=== PATIENT | male | born 1940 | race Caucasian/White ===

== ENCOUNTER 2017-11-22 09:29 | Inpatient (IN) ==
[2017-11-22 10:29] LABS: Basophils % 0.1 % (0.0-0.8); Eosinophils % 0.4 % (0.00-10.9); Hematocrit 31.7 VOL% (42.0-52.0); Hemoglobin 10.6 GM/DL (14.0-18.0); Immature Granulocytes % 0.3 %; Immature Granulocytes Absolute 0.02 #; Lymphocytes # 0.8 10*3/uL (1.4-4.0); Lymphocytes % 11.2 % (21.2-54.2); Mean Corpuscular HGB Conc 33.4 GM/DL (32-36); Mean Corpuscular Hemoglobin 33 PG (27-34); Monocytes # 0.9 10*3/uL (0.11-0.8); Monocytes % 12.2 % (1.7-12.7); Neutrophils # 5.5 10*3/uL (1.4-7.4); Neutrophils % 75.8 % (38.7-73.9); Platelet Count 116 T/CUMM (130-400); Red Blood Count 3.17 MC/CUMM (3.8-5.5); Red Cell Distribution Width 13.2 % (9.3-17.3); White Blood Count 7.2 T/CUMM (4-12)
[2017-11-22 10:45] LABS: Albumin 1.8 G/DL (3.4-5.0); Bilirubin,Total 1.4 MG/DL (0.2-1.0); Calcium 7.6 MG/DL (8.5-10.1); Osmolality,Calculated 276.7 MOS/KG (273-304); Potassium 3.9 MMOL/L (3.5-5.1); Total Protein 5.3 G/DL (6.4-8.3)
[2017-11-22] MEDS ORDERED: SODIUM CHLORIDE 0.9% 1,000 ML IV STA (11:05)
[2017-11-22] MEDS ORDERED: MAGNESIUM SULF RIDER 1 GM in PREMIX 1 EACH IV STA (11:36)
[2017-11-22] MEDS ORDERED: MAGNESIUM SULF RIDER 50 ML IV ONE (11:44)
[2017-11-22 12:08] LABS: Apearance,Urine CLEAR (Clear); Bacteria,Urine Occasional /HPF (Few); Bilirubin,Urine Negative (Negative); Blood, Urine Negative (Negative); Glucose,Urine (UA) Negative (Negative); Hyaline Casts,Urine 3 /LPF (0-3); Ketones,Urine Negative (Negative); Mucus,Urine Occasional /LPF (Occasional); Nitrite,Urine Negative (Negative); Protein,Urine Negative; RBC,Urine <1 /HPF (0-4); Squamous Epithelial Cell,Urine Occasional /HPF (0-10); Urine Color Yellow (Yellow); Urine Urobilinogen < 2.0 EU/DL (0.2-1.0); WBC,Urine <1 /HPF (0-6)
[2017-11-22] MEDS ORDERED: ONDANSETRON 4 MG/2 ML VIAL IV PRN (12:24)
[2017-11-22] MEDS ORDERED: DOCUSATE SODIUM 100 MG CAPSULE PO PRN (12:24)
[2017-11-22] MEDS ORDERED: MORPHINE 4 MG/1 ML VIAL IV PRN (12:24)
[2017-11-22] MEDS ORDERED: ACETAMINOPHEN 325 MG TABLET PO PRN (12:24)
[2017-11-22] MEDS ORDERED: GLUCAGON 1 MG VIAL IM PRN (12:30)
[2017-11-22] MEDS ORDERED: DEXTROSE 50% 25 GM/50 ML VIAL IV PRN (12:30)
[2017-11-22] MEDS ORDERED: MAGNESIUM SULF RIDER 2 GM in PREMIX 1 EACH IV PRN (13:28)
[2017-11-22] MEDS ORDERED: MAGNESIUM SULF RIDER 4 GM in PREMIX 1 EACH IV PRN (13:28)
[2017-11-22] MEDS: PANTOPRAZOLE 40 MG VIAL IV SCH ×2 (13:30→21:05)
[2017-11-22] MEDS: MAGNESIUM OXIDE 400 MG TABLET PO SCH ×2 (13:30→21:05)
[2017-11-22 13:46] LABS: Folate > 24.0 NG/ML (5.4-24.0); Hepatitis A Ab IgM Quant 0.21 Index; Hepatitis A Ab IgM Result Negative (Negative); Hepatitis B Core IgM Result Negative (Negative); Hepatitis B Surface Ag Quant < 0.10 Index; Hepatitis B Surface Ag Result Negative (Negative); Hepatitis C Virus Ab Quant 0.13 Index; Hepatitis C Virus Ab Result Negative (Negative); Vitamin B12 > 2000 PG/ML (211-911)
[2017-11-22] MEDS: DOXYCYCLINE HYCLATE 100 MG CAPSULE PO SCH ×2 (15:53→21:05)
[2017-11-22] MEDS: SODIUM CHLORIDE 0.9% 1,000 ML IV SCH ×3 (17:05→21:05)
[2017-11-22] MEDS: LIPASE/PROTEASE/AMYLASE 4,200 UNITS CAPSULE PO SCH (17:58)
[2017-11-22] MEDS: INSULIN LISPRO 100 UNIT/ML SUBCUT SCH (17:59)
[2017-11-22 22:38] LABS: Basophils % 0.2 % (0.0-0.8); Eosinophils # 0.1 10*3/uL (0.0-0.87); Eosinophils % 0.9 % (0.00-10.9); Hematocrit 27.3 VOL% (42.0-52.0); Hemoglobin 9.1 GM/DL (14.0-18.0); Immature Granulocytes % 0.7 %; Immature Granulocytes Absolute 0.04 #; Lymphocytes # 0.5 10*3/uL (1.4-4.0); Lymphocytes % 9.2 % (21.2-54.2); Mean Corpuscular HGB Conc 33.3 GM/DL (32-36); Mean Corpuscular Hemoglobin 34 PG (27-34); Mean Corpuscular Volume 100.4 FL (87-102); Mean Platelet Volume 13.4 FL (9.6-12.0); Monocytes # 0.7 10*3/uL (0.11-0.8); Monocytes % 11.5 % (1.7-12.7); Neutrophils # 4.5 10*3/uL (1.4-7.4); Neutrophils % 77.5 % (38.7-73.9); Platelet Count 114 T/CUMM (130-400); Red Blood Count 2.72 MC/CUMM (3.8-5.5); Red Cell Distribution Width 13.2 % (9.3-17.3); White Blood Count 5.7 T/CUMM (4-12)
[2017-11-22 22:54] LABS: Sedimentation Rate-Westergren 25 MM/HR (0-20)
[2017-11-23 05:22] LABS: Basophils % 0.2 % (0.0-0.8); Eosinophils # 0.1 10*3/uL (0.0-0.87); Hematocrit 26.6 VOL% (42.0-52.0); Immature Granulocytes % 0.7 %; Immature Granulocytes Absolute 0.04 #; Lymphocytes # 0.6 10*3/uL (1.4-4.0); Lymphocytes % 10.1 % (21.2-54.2); Mean Corpuscular HGB Conc 33.8 GM/DL (32-36); Mean Corpuscular Hemoglobin 33 PG (27-34); Mean Corpuscular Volume 97.8 FL (87-102); Monocytes # 0.8 10*3/uL (0.11-0.8); Monocytes % 12.9 % (1.7-12.7); Neutrophils # 4.5 10*3/uL (1.4-7.4); Neutrophils % 75.1 % (38.7-73.9); Platelet Count 113 T/CUMM (130-400); Red Blood Count 2.72 MC/CUMM (3.8-5.5); Red Cell Distribution Width 13.1 % (9.3-17.3)
[2017-11-23 06:05] LABS: Albumin 1.5 G/DL (3.4-5.0); Bilirubin,Total 1.2 MG/DL (0.2-1.0); Calcium 6.9 MG/DL (8.5-10.1); Osmolality,Calculated 287.1 MOS/KG (273-304); Potassium 3.9 MMOL/L (3.5-5.1); Risk Ratio 5.5; Thyroid Stimulating Hormone 2.61 uIU/ml (0.358-3.74); Total Protein 4.3 G/DL (6.4-8.3); VLDL CHOLESTEROL 14.4 MG/DL
[2017-11-23] MEDS: SODIUM CHLORIDE 0.9% 1,000 ML IV SCH ×4 (07:31→16:47)
[2017-11-23] MEDS: LIPASE/PROTEASE/AMYLASE 4,200 UNITS CAPSULE PO SCH ×3 (08:00→16:47)
[2017-11-23] MEDS: PANTOPRAZOLE 40 MG VIAL IV SCH ×2 (08:38→20:37)
[2017-11-23] MEDS: INSULIN LISPRO 100 UNIT/ML SUBCUT SCH ×2 (08:40→16:46)
[2017-11-23] MEDS ORDERED: ETOMIDATE 20 MG/10 ML VIAL IV ONE (09:00)
[2017-11-23] MEDS ORDERED: LIDOCAINE 2% 5 ML VIAL ONE (09:00)
[2017-11-23] MEDS ORDERED: PROPOFOL 200 MG/20 ML VIAL IV ONE (09:00)
[2017-11-23 09:10] LABS: Hemoglobin A1 (Alkaline) 97.4 % (96.5-98.5); Hemoglobin A2 (Alkaline) 2.6 % (1.5-3.5)
[2017-11-23] MEDS: MAGNESIUM OXIDE 400 MG TABLET PO SCH ×2 (12:13→20:37)
[2017-11-23] MEDS: DOXYCYCLINE HYCLATE 100 MG CAPSULE PO SCH ×2 (12:13→20:37)
[2017-11-23] MEDS: IRON SUCROSE 200 MG in SODIUM CHLORIDE 0.9% 100 ML IV SCH (16:46)
[2017-11-23] MEDS ORDERED: TAMSULOSIN 0.4 MG CAPSULE PO SCH (21:00)
[2017-11-23 21:55] LABS: Apearance,Urine CLEAR (Clear); Bacteria,Urine Occasional /HPF (Few); Bilirubin,Urine Negative (Negative); Blood, Urine Negative (Negative); Glucose,Urine (UA) Negative (Negative); Hyaline Casts,Urine 4 /LPF (0-3); Ketones,Urine Negative (Negative); Mucus,Urine Occasional /LPF (Occasional); Nitrite,Urine Negative (Negative); Protein,Urine Negative; Urine Color Yellow (Yellow); Urine Specific Gravity 1.011 (1.001-1.035); Urine Urobilinogen < 2.0 EU/DL (0.2-1.0); WBC,Urine 1 /HPF (0-6)
[2017-11-24] MEDS: SODIUM CHLORIDE 0.9% 1,000 ML IV SCH ×2 (00:25→08:10)
[2017-11-24 05:13] LABS: Basophils % 0.3 % (0.0-0.8); Eosinophils # 0.2 10*3/uL (0.0-0.87); Eosinophils % 2.9 % (0.00-10.9); Hematocrit 25.7 VOL% (42.0-52.0); Hemoglobin 8.9 GM/DL (14.0-18.0); Immature Granulocytes % 0.5 %; Immature Granulocytes Absolute 0.03 #; Lymphocytes # 0.8 10*3/uL (1.4-4.0); Lymphocytes % 13.3 % (21.2-54.2); Mean Corpuscular HGB Conc 34.6 GM/DL (32-36); Mean Corpuscular Hemoglobin 33 PG (27-34); Mean Corpuscular Volume 95.5 FL (87-102); Mean Platelet Volume 12.5 FL (9.6-12.0); Monocytes # 0.8 10*3/uL (0.11-0.8); Monocytes % 12.8 % (1.7-12.7); Neutrophils # 4.3 10*3/uL (1.4-7.4); Neutrophils % 70.2 % (38.7-73.9); Platelet Count 150 T/CUMM (130-400); Red Blood Count 2.69 MC/CUMM (3.8-5.5); Red Cell Distribution Width 13.4 % (9.3-17.3); White Blood Count 6.2 T/CUMM (4-12)
[2017-11-24 05:23] LABS: Calcium 6.7 MG/DL (8.5-10.1)
[2017-11-24] MEDS: IRON SUCROSE 200 MG in SODIUM CHLORIDE 0.9% 100 ML IV SCH (08:00)
[2017-11-24] MEDS ORDERED: LISINOPRIL 5 MG TABLET PO SCH (09:00)
[2017-11-24] MEDS ORDERED: FUROSEMIDE 40 MG TABLET PO SCH (09:00)
[2017-11-24] MEDS: INSULIN LISPRO 100 UNIT/ML SUBCUT SCH (09:08)
[2017-11-24] MEDS: LIPASE/PROTEASE/AMYLASE 4,200 UNITS CAPSULE PO SCH ×2 (09:08→12:30)
[2017-11-24] MEDS: DOXYCYCLINE HYCLATE 100 MG CAPSULE PO SCH (09:09)
[2017-11-24] MEDS: MAGNESIUM OXIDE 400 MG TABLET PO SCH (09:09)
[2017-11-24] MEDS: PANTOPRAZOLE 40 MG VIAL IV SCH (09:13)
[2017-11-24 11:26] VITALS: BP 107/55
[2017-11-26 13:10] LABS: Collection duration of stool Random h; Total Weight of Stool 36 g
== END 2017-11-24 15:20 | disposition home or self-care (01) | DRG 948 ==
LOC: N.ED 09:29 → N.EDINP 11:56 → N.2W 13:56 → N.TELES 16:13
PROVIDERS: ADMIT Internal Medicine; ATTEND Internal Medicine

== ENCOUNTER 2021-07-26 19:13 | Inpatient (IN) ==
[2021-07-26] MEDS ORDERED: ONDANSETRON 4 MG/2 ML VIAL IV STA (20:07)
[2021-07-26 20:13] LABS: Basophils % 0.5 % (0.0-0.8); Eosinophils # 0.4 10*3/uL (0.0-0.87); Eosinophils % 4.8 % (0.00-10.9); Hematocrit 40.6 VOL% (42.0-52.0); Hemoglobin 12.6 GM/DL (14.0-18.0); Immature Granulocytes % 0.5 %; Immature Granulocytes Absolute 0.04 #; Lymphocytes # 1.9 10*3/uL (1.4-4.0); Mean Corpuscular Volume 92.3 FL (87-102); Mean Platelet Volume 11.7 FL (9.6-12.0); Monocytes % 7.8 % (1.7-12.7); Neutrophils % 64.4 % (38.7-73.9); Platelet Count 280 T/CUMM (130-400); Red Cell Distribution Width 15.8 % (9.3-17.3); White Blood Count 8.4 T/CUMM (4-12)
[2021-07-26] MEDS ORDERED: ALBUTEROL/IPRATROPIUM 3 ML NEB RESP TX STA (20:20)
[2021-07-26] MEDS ORDERED: FUROSEMIDE 40 MG/4 ML VIAL IV STA (20:20)
[2021-07-26] MEDS ORDERED: methylPREDNISolone SOD SUC 125 MG/2 ML VIAL IV STA (20:20)
[2021-07-26 20:29] LABS: INR 1.1; PT Patient Result 12.5 SECS (10.5-12.0)
[2021-07-26 20:34] LABS: Albumin 3.6 G/DL (3.4-5.0); Bilirubin,Total 0.4 MG/DL (0.20-1.00); Calcium 9.3 MG/DL (8.5-10.1); Osmolality,Calculated 291.5 MOS/KG (273-304); Potassium 5.2 MMOL/L (3.5-5.1); Total Protein 7.8 G/DL (6.4-8.2)
[2021-07-26] MEDS ORDERED: MAGNESIUM SULF RIDER 2 GM/50 ML PREMIX IV STA (21:09)
[2021-07-26] MEDS ORDERED: ZALEPLON 5 MG CAPSULE PO PRN (21:46)
[2021-07-26] MEDS ORDERED: ACETAMINOPHEN 325 MG TABLET PO PRN (21:46)
[2021-07-26] MEDS ORDERED: ONDANSETRON 4 MG/2 ML VIAL IV PRN (21:46)
[2021-07-26] MEDS ORDERED: DOCUSATE SODIUM 100 MG CAPSULE PO PRN (21:46)
[2021-07-26] MEDS ORDERED: guaiFENesin/DM ER 600-30 MG TABLET PO PRN (21:46)
[2021-07-26] MEDS ORDERED: NICOTINE 21 MG/24 HR PATCH TRANSDERM PRN (21:46)
[2021-07-26] MEDS ORDERED: DEXTROSE 50% 25 GM/50 ML VIAL IV PRN (21:46)
[2021-07-26] MEDS ORDERED: hydrALAZINE 20 MG/1 ML VIAL IV PRN (21:46)
[2021-07-26] MEDS ORDERED: GLUCAGON 1 MG VIAL IM PRN ×2 (21:46)
[2021-07-26] MEDS ORDERED: diphenhydrAMINE CAP 25 MG CAPSULE PO PRN (21:46)
[2021-07-26] MEDS ORDERED: FUROSEMIDE 40 MG/4 ML VIAL IV SCH (22:00)
[2021-07-26] MEDS ORDERED: DEXTROSE 10% 250 ML BAG IV PRN (22:17)
[2021-07-27] MEDS: ALBUTEROL/IPRATROPIUM 3 ML NEB RESP TX SCH ×4 (01:03→18:04)
[2021-07-27 04:26] LABS: Basophils % 0.1 % (0.0-0.8); Hematocrit 35.8 VOL% (42.0-52.0); Hemoglobin 11.1 GM/DL (14.0-18.0); Immature Granulocytes % 0.7 %; Immature Granulocytes Absolute 0.05 #; Lymphocytes # 0.3 10*3/uL (1.4-4.0); Lymphocytes % 3.5 % (21.2-54.2); Mean Corpuscular Volume 91.1 FL (87-102); Mean Platelet Volume 11.5 FL (9.6-12.0); Monocytes % 0.4 % (1.7-12.7); Neutrophils % 95.3 % (38.7-73.9); Platelet Count 257 T/CUMM (130-400); Red Blood Count 3.93 MC/CUMM (3.8-5.5); Red Cell Distribution Width 15.6 % (9.3-17.3); White Blood Count 7.4 T/CUMM (4-12)
[2021-07-27 04:55] LABS: Band Neutrophils 1 % (0-10); Calcium 8.7 MG/DL (8.5-10.1); Lymphocytes 4 % (20-55); Osmolality,Calculated 299.7 MOS/KG (273-304); Potassium 4.5 MMOL/L (3.5-5.1); Segmented Neutrophils 94 % (50-85); Total Cells Counted 100
[2021-07-27 04:56] LABS: Hypochromia 1+; Microcytosis 1+; Ovalocytes Slight; Platelet Estimate Normal
[2021-07-27] MEDS ORDERED: FUROSEMIDE 40 MG/4 ML VIAL IV SCH (08:00)
[2021-07-27] MEDS: INSULIN LISPRO 100 UNIT/ML SUBCUT SCH ×4 (08:06→22:15)
[2021-07-27] MEDS ORDERED: MAGNESIUM SULF RIDER 2 GM/50 ML PREMIX IV ONE (08:49)
[2021-07-27] MEDS ORDERED: MAGNESIUM SULF RIDER 4 GM/100 ML PREMIX IV PRN (08:50)
[2021-07-27] MEDS ORDERED: MAGNESIUM SULF RIDER 2 GM/50 ML PREMIX IV PRN (08:50)
[2021-07-27] MEDS ORDERED: lisinopriL 5 MG TABLET PO SCH (09:00)
[2021-07-27] MEDS: MULTIVITAMIN (CENTRUM) TABLET PO SCH (09:35)
[2021-07-27] MEDS: carvediloL 3.125 MG TABLET PO SCH ×2 (09:36→21:05)
[2021-07-27] MEDS: PANTOPRAZOLE 40 MG TABLET PO SCH (09:36)
[2021-07-27] MEDS: MAGNESIUM OXIDE 400 MG TABLET PO SCH ×2 (09:36→21:05)
[2021-07-27] MEDS: APIXABAN 5 MG TABLET PO SCH ×2 (09:36→21:05)
[2021-07-27] MEDS: LIPASE/PROTEASE/AMYLASE 4,200 UNITS CAPSULE PO SCH ×3 (10:05→17:30)
[2021-07-27 11:20] LABS: Calcium 8.6 MG/DL (8.5-10.1); Potassium 4.4 MMOL/L (3.5-5.1)
[2021-07-28] MEDS: ALBUTEROL/IPRATROPIUM 3 ML NEB RESP TX SCH ×4 (00:05→19:36)
[2021-07-28 05:54] LABS: Basophils % 0.3 % (0.0-0.8); Eosinophils # 0.1 10*3/uL (0.0-0.87); Eosinophils % 0.8 % (0.00-10.9); Hematocrit 33.5 VOL% (42.0-52.0); Hemoglobin 10.7 GM/DL (14.0-18.0); Immature Granulocytes % 0.5 %; Immature Granulocytes Absolute 0.07 #; Lymphocytes # 1.9 10*3/uL (1.4-4.0); Lymphocytes % 14.1 % (21.2-54.2); Mean Corpuscular HGB Conc 31.9 GM/DL (32-36); Mean Corpuscular Volume 90.3 FL (87-102); Mean Platelet Volume 12.1 FL (9.6-12.0); Monocytes % 6.7 % (1.7-12.7); Neutrophils % 77.6 % (38.7-73.9); Platelet Count 209 T/CUMM (130-400); Red Blood Count 3.71 MC/CUMM (3.8-5.5); Red Cell Distribution Width 15.5 % (9.3-17.3); White Blood Count 13.7 T/CUMM (4-12)
[2021-07-28 06:04] LABS: Calcium 8.5 MG/DL (8.5-10.1); Osmolality,Calculated 289.4 MOS/KG (273-304)
[2021-07-28] MEDS: INSULIN LISPRO 100 UNIT/ML SUBCUT SCH ×4 (08:20→22:59)
[2021-07-28] MEDS ORDERED: FUROSEMIDE 40 MG/4 ML VIAL IV SCH ×2 (09:00)
[2021-07-28] MEDS: LIPASE/PROTEASE/AMYLASE 4,200 UNITS CAPSULE PO SCH ×3 (09:30→18:15)
[2021-07-28] MEDS: CYANOCOBALAMIN 500 MCG TABLET PO SCH (09:31)
[2021-07-28] MEDS: PANTOPRAZOLE 40 MG TABLET PO SCH (09:31)
[2021-07-28] MEDS: carvediloL 3.125 MG TABLET PO SCH ×2 (09:31→21:30)
[2021-07-28] MEDS: MULTIVITAMIN (CENTRUM) TABLET PO SCH (09:31)
[2021-07-28] MEDS: MAGNESIUM OXIDE 400 MG TABLET PO SCH ×2 (09:31→21:30)
[2021-07-28] MEDS: APIXABAN 5 MG TABLET PO SCH ×2 (09:31→21:30)
[2021-07-28] MEDS: FUROSEMIDE 40 MG TABLET PO SCH (10:58)
[2021-07-28 17:44] LABS: RBC,Urine 1 /HPF (0-4)
[2021-07-28 17:49] LABS: Urine Appearance Clear (Clear); Urine Color Yellow (Yellow); Urine Specific Gravity 1.015 (1.001-1.035)
[2021-07-28 17:50] LABS: Bilirubin,Urine Negative (Negative); Blood, Urine Negative (Negative); Glucose,Urine (UA) Negative (Negative); Ketones,Urine Negative (Negative); Nitrite,Urine Negative (Negative); Protein,Urine Negative; Urine Urobilinogen 0.2 EU/DL (<2.0)
[2021-07-29] MEDS: ALBUTEROL/IPRATROPIUM 3 ML NEB RESP TX SCH ×2 (00:38→07:50)
[2021-07-29 04:25] LABS: Basophils % 0.3 % (0.0-0.8); Eosinophils # 0.4 10*3/uL (0.0-0.87); Hematocrit 34.9 VOL% (42.0-52.0); Hemoglobin 10.9 GM/DL (14.0-18.0); Immature Granulocytes % 0.2 %; Immature Granulocytes Absolute 0.02 #; Lymphocytes # 1.5 10*3/uL (1.4-4.0); Lymphocytes % 16.6 % (21.2-54.2); Mean Corpuscular HGB Conc 31.2 GM/DL (32-36); Mean Corpuscular Volume 91.1 FL (87-102); Mean Platelet Volume 11.7 FL (9.6-12.0); Monocytes % 8.9 % (1.7-12.7); Platelet Count 254 T/CUMM (130-400); Red Blood Count 3.83 MC/CUMM (3.8-5.5); Red Cell Distribution Width 15.5 % (9.3-17.3); White Blood Count 8.9 T/CUMM (4-12)
[2021-07-29 04:42] LABS: Calcium 8.3 MG/DL (8.5-10.1); Potassium 4.2 MMOL/L (3.5-5.1)
[2021-07-29] MEDS: MAGNESIUM OXIDE 400 MG TABLET PO SCH (09:17)
[2021-07-29] MEDS: LIPASE/PROTEASE/AMYLASE 4,200 UNITS CAPSULE PO SCH ×2 (09:17→12:59)
[2021-07-29] MEDS: INSULIN LISPRO 100 UNIT/ML SUBCUT SCH ×2 (09:17→12:58)
[2021-07-29] MEDS: carvediloL 3.125 MG TABLET PO SCH (09:17)
[2021-07-29] MEDS: CYANOCOBALAMIN 500 MCG TABLET PO SCH (09:17)
[2021-07-29] MEDS: APIXABAN 5 MG TABLET PO SCH (09:18)
[2021-07-29] MEDS: FUROSEMIDE 40 MG TABLET PO SCH (09:18)
[2021-07-29] MEDS: MULTIVITAMIN (CENTRUM) TABLET PO SCH (09:18)
[2021-07-29] MEDS: PANTOPRAZOLE 40 MG TABLET PO SCH (09:18)
[2021-07-29 12:48] VITALS: BP 102/51
== END 2021-07-29 13:56 | disposition home or self-care (01) | DRG 292 ==
LOC: N.ED 19:13 → N.EDINP 21:46 → N.TELES 07-27 16:44
PROVIDERS: ADMIT Internal Medicine; ATTEND Internal Medicine

== ENCOUNTER 2021-09-21 09:24 | Inpatient (IN) ==
[2021-09-21 10:05] LABS: Basophils # 0.1 10*3/uL (0.0-0.2); Basophils % 0.6 % (0.0-0.8); Eosinophils # 0.1 10*3/uL (0.0-0.87); Eosinophils % 1.7 % (0.00-10.9); Hematocrit 38.2 VOL% (42.0-52.0); Hemoglobin 11.5 GM/DL (14.0-18.0); Immature Granulocytes % 0.9 %; Immature Granulocytes Absolute 0.07 #; Lymphocytes # 1.2 10*3/uL (1.4-4.0); Lymphocytes % 15.1 % (21.2-54.2); Mean Corpuscular HGB Conc 30.1 GM/DL (32-36); Monocytes # 0.6 10*3/uL (0.11-0.8); Monocytes % 7.9 % (1.7-12.7); Neutrophils % 73.8 % (38.7-73.9); Platelet Count 209 T/CUMM (130-400); Red Blood Count 4.02 MC/CUMM (3.8-5.5); Red Cell Distribution Width 17.6 % (9.3-17.3); White Blood Count 7.7 T/CUMM (4-12)
[2021-09-21 10:29] LABS: Calcium 8.4 MG/DL (8.5-10.1); Osmolality,Calculated 286.1 MOS/KG (273-304); Potassium 4.6 MMOL/L (3.5-5.1)
[2021-09-21] MEDS ORDERED: DEXTROSE 50% 25 GM/50 ML VIAL IV STA (10:38)
[2021-09-21] MEDS ORDERED: DEXTROSE 50% 25 GM/50 ML SYRINGE IV ONE (10:39)
[2021-09-21] MEDS ORDERED: DEXTROSE 5% 250 ML IV ONE (10:39)
[2021-09-21] MEDS: DEXTROSE 5% NACL 0.9% 1,000 ML IV SCH (11:04)
[2021-09-21] MEDS ORDERED: DOCUSATE SODIUM 100 MG CAPSULE PO PRN (11:06)
[2021-09-21] MEDS ORDERED: ONDANSETRON 4 MG/2 ML VIAL IV PRN (11:06)
[2021-09-21] MEDS ORDERED: ACETAMINOPHEN 325 MG TABLET PO PRN (11:06)
[2021-09-21] MEDS ORDERED: GLUCAGON 1 MG VIAL IM PRN (11:06)
[2021-09-21] MEDS ORDERED: DEXTROSE 10% 250 ML BAG IV PRN (11:10)
[2021-09-21] MEDS ORDERED: [UNRECOGNIZED DRUG - OTHER] PO SCH ×2 (15:30→17:00)
[2021-09-21] MEDS ORDERED: LIPASE PROTEASE AMYLASE PO SCH ×2 (15:30→17:00)
[2021-09-21] MEDS: APIXABAN 2.5 MG TABLET PO SCH (20:39)
[2021-09-21] MEDS: MAGNESIUM OXIDE 400 MG TABLET PO SCH (20:39)
[2021-09-22] MEDS: DEXTROSE 5% NACL 0.9% 1,000 ML IV SCH ×2 (03:18→08:27)
[2021-09-22 06:31] LABS: Albumin 2.6 G/DL (3.4-5.0); Bilirubin,Total 0.6 MG/DL (0.20-1.00); Calcium 7.9 MG/DL (8.5-10.1); Potassium 3.7 MMOL/L (3.5-5.1)
[2021-09-22] MEDS: MAGNESIUM OXIDE 400 MG TABLET PO SCH ×2 (08:24→20:35)
[2021-09-22] MEDS: APIXABAN 2.5 MG TABLET PO SCH ×2 (08:24→20:35)
[2021-09-22] MEDS ORDERED: INSULIN NPH/REGULAR 70/30 100 UNIT/ML SUBCUT SCH ×2 (09:00→17:00)
[2021-09-22] MEDS: INSULIN GLARGINE 100 UNIT/ML SUBCUT SCH (09:14)
[2021-09-22 10:06] LABS: Bacteria,Urine Occasional /HPF (Few); Mucus,Urine Occasional /LPF (Occasional); RBC,Urine 4 /HPF (0-4)
[2021-09-22 10:07] LABS: Bilirubin,Urine Negative (Negative); Blood, Urine Trace mg/dL (Negative); Glucose,Urine (UA) 100 mg/dL (Negative); Ketones,Urine Negative (Negative); Nitrite,Urine Negative (Negative); Protein,Urine Negative (Negative); Urine Appearance Clear (Clear); Urine Color Yellow (Yellow); Urine Specific Gravity 1.025 (1.001-1.035); Urine Urobilinogen 0.2 eU/dL (<2.0); Urine pH 5.5 (4.5-8.0)
[2021-09-22] MEDS ORDERED: FUROSEMIDE 40 MG TABLET PO PRN (10:08)
[2021-09-22] MEDS: TAMSULOSIN 0.4 MG CAPSULE PO SCH (12:06)
[2021-09-22] MEDS: INSULIN LISPRO 100 UNIT/ML SUBCUT SCH ×3 (12:06→20:36)
[2021-09-23 05:00] LABS: Basophils % 0.5 % (0.0-0.8); Eosinophils # 0.2 10*3/uL (0.0-0.87); Hematocrit 31.8 VOL% (42.0-52.0); Hemoglobin 9.8 GM/DL (14.0-18.0); Immature Granulocytes % 0.6 %; Immature Granulocytes Absolute 0.05 #; Lymphocytes # 1.3 10*3/uL (1.4-4.0); Lymphocytes % 14.4 % (21.2-54.2); Mean Corpuscular HGB Conc 30.8 GM/DL (32-36); Mean Corpuscular Volume 92.2 FL (87-102); Mean Platelet Volume 11.5 FL (9.6-12.0); Monocytes # 1.2 10*3/uL (0.11-0.8); Monocytes % 13.2 % (1.7-12.7); Neutrophils % 69.3 % (38.7-73.9); Platelet Count 158 T/CUMM (130-400); Red Blood Count 3.45 MC/CUMM (3.8-5.5); Red Cell Distribution Width 17.4 % (9.3-17.3); White Blood Count 8.9 T/CUMM (4-12)
[2021-09-23 05:16] LABS: Calcium 8.3 MG/DL (8.5-10.1); Osmolality,Calculated 274.8 MOS/KG (273-304)
[2021-09-23] MEDS ORDERED: MAGNESIUM SULF RIDER 2 GM/50 ML PREMIX IV PRN (08:05)
[2021-09-23] MEDS ORDERED: MAGNESIUM SULF RIDER 4 GM/100 ML PREMIX IV PRN (08:05)
[2021-09-23] MEDS: APIXABAN 2.5 MG TABLET PO SCH (08:14)
[2021-09-23] MEDS: TAMSULOSIN 0.4 MG CAPSULE PO SCH (08:14)
[2021-09-23] MEDS: MAGNESIUM OXIDE 400 MG TABLET PO SCH (08:15)
[2021-09-23] MEDS: INSULIN LISPRO 100 UNIT/ML SUBCUT SCH ×2 (08:17→11:07)
[2021-09-23] MEDS ORDERED: MULTIVITAMIN (CENTRUM) TABLET PO SCH (09:00)
[2021-09-23] MEDS: INSULIN GLARGINE 100 UNIT/ML SUBCUT SCH (09:24)
[2021-09-23 11:41] VITALS: BP 140/60
== END 2021-09-23 13:47 | disposition home health service (06) | DRG 864 ==
LOC: EDUNIT# → N.5E 09:24 → N.EDINP 09:24 → N.ED 09:24 → N.5E 12:36 → SUATTDRO 09-22 13:37
PROVIDERS: ADMIT Internal Medicine; ATTEND Internal Medicine